=== PATIENT | male | born 1940 | race Caucasian/White ===

== ENCOUNTER 2016-12-18 17:02 | Emergency (ER) | payer MEDICARE, OTHER ==
[2016-12-18 16:32] LABS: BASOPHILS 0.3 %; BASOPHILS ABSOLUTE 0.01 10/3/uL (0.0-0.16); EOSINOPHILS 0 %; HEMATOCRIT 23.8 % (40.0-51.0); HEMOGLOBIN 8.2 g/dL (13.6-17.8); IMMATURE GRANULOCYTES 0.8 %; IMMATURE GRANULOCYTES ABSOLUTE 0.03 10/3/uL (0.0-0.11); LYMPHOCYTES 16.9 %; LYMPHOCYTES ABSOLUTE 0.61 10/3/uL (0.67-4.30); MEAN CORPUS HGB CONC 34.5 g/dL (32.0-36.0); MEAN CORPUSCULAR HEMOGLOB 32.7 pg (26.0-34.0); MEAN CORPUSCULAR VOLUME 94.8 fL (80-100); MEAN PLATELET VOLUME 10.1 fL (9.2-13.0); MONOCYTES 11.7 %; MONOCYTES ABSOLUTE 0.42 10/3/uL (0.21-1.20); NEUTROPHILS 70.3 %; NEUTROPHILS ABSOLUTE 2.53 10/3/uL (2.02-8.40); RED CELL COUNT 2.51 10/6/uL (4.7-6.1)
[2016-12-18 16:35] LABS: MANUAL DIFF NO %; PLATELET COUNT 99 10/3/uL (150-400); PROTIME (NOT ORD) 22.7 SEC (12.0-14.5); RBC DISTRIBUTION WIDTH 21.7 % (12.0-16.0); WHITE BLOOD CELLS 3.6 10/3/uL (4.5-10.5)
[2016-12-18 16:40] LABS: A/G RATIO 0.9 (0.7-1.9); ALKALINE PHOSPHATASE 79 U/L (45-117); CALCIUM, SERUM 7.6 MG/DL (8.5-10.4); CO2 (CARBON DIOXIDE) 25 MMOL/L (24-34); SGOT(AST) 19 U/L (5-40); SGPT(ALT) 16 U/L (5-65); TOTAL BILIRUBIN 0.7 MG/DL (0-1.2); TOTAL PROTEIN 5.6 G/DL (6.0-8.5); TROPONIN I 0.03 NG/ML (<0.05)
[2016-12-18 16:41] LABS: ALBUMIN 2.6 G/DL (3.5-5.0); BUN (BLOOD UREA NITROGEN) 23 MG/DL (6-23); CHLORIDE, SERUM 97 MMOL/L (96-112); GFR AFRICAN AMERICAN 18 ML/MIN (>=60); GFR NON AFRICAN AMERICAN 15 ML/MIN (>=60); GLUCOSE, SERUM 113 MG/DL (60-99); SODIUM, SERUM 137 MMOL/L (135-148)
[~2016-12-18 17:02] MED LIST: BIST PO; C1 PO; CALTRA600D PO; CHEMO THERAPY IV; CHEMOTHERAPY IV; CO Q-10100 MG PO; COMP10B PO; COREG6 PO; FIBER CAPS PO; FIBER CAPSULE PO; FOLIC PO; HYDROCORT12 TOP; IMOD PO; JANTOVEN PO; JANTOVEN2.5 MG PO; LEVAQUIN5T PO; LIPITOR20 PO; NEUR100 PO; NEXIUM40 PO; NYS500UDL PO; OXYCOD PO; PROAMATINE10 MG PO; TRADJENTA5 MG PO; ULORIC40 MG PO; ULTRAM50 PO; VITAMIN D1000 UNI1 PO; VITAMIN D2000 UNIT PO; VITAMIN D31000 UNIT PO; ZOFRAN8 PO; ZOL100 PO
[2016-12-18 17:06] LABS: ANISOCYTOSIS 1+ (5-10/OIF) (0-5/OIF); BAND NEUTROPHILS 6 %; ER DIFF TAT 0 Hrs 48 Mins; LYMPHOCYTES 14 %; MONOCYTES 7 %; MONOCYTES ABSOLUTE (CALC) 0.25 10/3/uL (0.21-1.20); NEUTROPHILS ABSOLUTE (CALC) 2.84 10/3/uL (2.02-8.40); PLATELET ESTIMATE DEC (ADEQUATE); SEGMENTED NEUTROPHIL (0) 73 %; TOTAL NUCLEATED CELLS 100
[2017-02-23] MEDS ORDERED: LIDOCAINE CREAM TOP (17:24)
[2017-02-23] MEDS ORDERED: LIPITOR20 PO (17:25)
[2017-02-23] MEDS ORDERED: JANTOVEN2 MG PO (17:27)
[2017-02-23] MEDS ORDERED: JANTOVEN1 MG PO (17:29)
[2017-02-23] MEDS ORDERED: TRADJENTA5 MG PO (17:30)
[2017-02-23] MEDS ORDERED: NEXIUM40 PO (17:30)
[2017-02-23] MEDS ORDERED: FOLIC PO (17:31)
[2017-02-23] MEDS ORDERED: ZOL100 PO (17:31)
[2017-02-23] MEDS ORDERED: NEUR100 PO (17:31)
[2017-02-23] MEDS ORDERED: ULORIC40 MG PO (17:32)
[2017-02-23] MEDS ORDERED: PROAMATINE10 MG PO (17:32)
[2017-02-23] MEDS ORDERED: CALTRA600D PO (17:33)
[2017-02-23] MEDS ORDERED: FIBERCON PO (17:33)
[2017-02-23] MEDS ORDERED: SODBICAR10 PO (17:34)
[2017-02-23] MEDS ORDERED: VITAMIN D2000 UNIT PO (17:34)
[2017-02-23] MEDS ORDERED: CO Q-10100 MG PO (17:34)
[2017-02-23] MEDS ORDERED: ZOFRAN8 PO (17:37)
[2017-02-23] MEDS ORDERED: CHEMOTHERAPY IV (17:41)
[2017-02-23] MEDS ORDERED: COMP10B PO (17:43)
[2017-02-23] MEDS ORDERED: LOM PO (17:45)
[2017-02-23] MEDS ORDERED: ULTRAM50 PO (17:52)
[2017-02-23] MEDS ORDERED: OXYCOD PO (17:53)
== END 2016-12-18 19:15 | disposition home or self-care (01) ==
LOC: ER 17:02
PROVIDERS: Emergency Medicine
DX: R53.1 Weakness (principal); I48.91 Unspecified atrial fibrillation; I12.0 Hypertensive chronic kidney disease with stage 5 chronic kidney disease or end stage renal disease; N18.6 End stage renal disease; E11.9 Type 2 diabetes mellitus without complications; Z85.51 Personal history of malignant neoplasm of bladder; Z91.041 Radiographic dye allergy status; Z91.048 Other nonmedicinal substance allergy status; Z79.899 Other long term (current) drug therapy
CPT/HCPCS: 71010; 80053; 81001; 84484; 85025; 85610; 99284